=== PATIENT | male | born 1985 | race Two or more races ===

== ENCOUNTER 2017-10-28 18:54 | Emergency (ER) | payer MEDICAID ==
[2017-10-28 19:04] VITALS: RESP 18; TEMP 98.6
--- NOTE | 2017-10-28 19:39 | EDPHY ---
H & P Time Seen by Provider: 10/28/17 19:24 HPI/ROS: Chief complaint. Anxiety, shortness of breath HPI. 32-year-old male presents emergency department with symptoms of anxiety and slight shortness of breath and increased emotional numbness. He received a cortisone shot in a scar in his left shoulder today. It was for keloid treatment. Immediately afterwards he felt some anxiety. He has felt some tension in his chest. He feels he has on balance breathing but not really short of breath. He feels somewhat irritable and emotionally labile. Has some soreness in his left shoulder that goes down to his hand. He has never had a previous cortisone shot. No throat swelling ROS Constitutional. no fever/chills, no weakness Eyes. no problems with vision ENT. no sore throat, no nasal drainage Cardiovascular. no chest pain Respiratory. Slight shortness of breath Abdominal. no abdominal pain, no nausea/vomiting, no diarrhea . no problems urinating MS. Left arm pain Skin. no rash Lymph. no swollen glands Neuro. Irritable and emotionally labile Past Medical/Surgical History: Left shoulder reconstruction, anxiety and depression Social History: Single, nonsmoker, no alcohol Smoking Status: Former smoker Physical Exam: General Appearance: Alert well-developed male somewhat anxious vital signs are stable Eyes: Pupils equal and round no pallor or injection. ENT, Mouth: Mucous membranes are moist. Respiratory: There are no retractions, lungs are clear to auscultation. Cardiovascular: Regular rate and rhythm. Gastrointestinal: Abdomen is soft and nontender, no masses, bowel sounds normal. Neurological: Awake and alert, sensory and motor exams grossly normal. Skin: Keloid scar on the left shoulder. No obvious swelling or erythema to this Musculoskeletal: Neck is supple nontender. Extremities symmetrical, full range of motion. Psychiatric: Patient is oriented X 3, there is no agitation. Constitutional: Initial Vital Signs Temperature (C) 37 C 10/28/17 19:00 Heart Rate 66 10/28/17 19:00 Respiratory Rate 18 10/28/17 19:00 Blood Pressure 131/89 H 10/28/17 19:00 O2 Sat (%) 99 10/28/17 19:00 O2 Delivery Mode Room Air Allergies/Adverse Reactions: No Known Allergies Allergy (Unverified 10/28/17 19:00) Home Medications: Medication Instructions Recorded Albuterol 10/28/17 LORazepam [Ativan] 1 mg PO Q6-8PRN PRN #7 tab 10/28/17 Medical Decision Making Procedures: Ativan and Benadryl ED Course/Re-evaluation: Patient remained stable. The patient and I discussed treatment plan including criteria for return importance of follow-up and further evaluation. He expresses understanding and agreement Differential Diagnosis: Apparent reaction to cortisone or other medications in the shot. Anxiety and emotional lability but without any cardiopulmonary findings or evidence for infection Departure - Departure Disposition: Home, Routine, Self-Care Clinical Impression: Medication reaction Qualifiers: Encounter type: initial encounter Qualified Code(s): T88.7XXA - Unspecified adverse effect of drug or medicament, initial encounter Condition: Good Instructions: Antihistamine (By mouth) Additional Instructions: Ativan as needed for anxiety. Benadryl to help block any allergic reaction. Return for worsening breathing or fever. Recheck in 1-2 days for continuing symptoms Referrals: Luanne Polanco DO [Primary Care Provider] - 1 day, if not improved Prescriptions: LORazepam [Ativan] 1 mg PO Q6-8PRN PRN #7 tab PRN Reason: Anxiety
[2017-10-28] MEDS ORDERED: diphenhydrAMINE 25 MG CAP PO ONE (20:08)
[2017-10-28] MEDS ORDERED: LORAZEPAM 1 MG PREPACK#4 BTL TAKEHOME ONE (20:08)
[2017-10-28 20:36] VITALS: BP 96/68; PULSE 88; O2SAT 96
== END 2017-10-28 20:35 | disposition home or self-care (01) ==
DX: F41.9 Anxiety disorder, unspecified (principal); T38.0X5A Adverse effect of glucocorticoids and synthetic analogues, initial encounter; Z87.891 Personal history of nicotine dependence

== ENCOUNTER 2018-01-21 20:20 | Emergency (ER) | payer OTHER, MEDICAID ==
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
[2018-01-21] MEDS ORDERED: CYCLOBENZAPRINE 10MG PREPACK#3 BTL TAKEHOME ONE (21:58)
[2018-01-21 22:30] VITALS: BP 142/80
== END 2018-01-21 22:29 | disposition home or self-care (01) ==
DX: S33.5XXA Sprain of ligaments of lumbar spine, initial encounter (principal); S23.9XXA Sprain of unspecified parts of thorax, initial encounter; J45.909 Unspecified asthma, uncomplicated; Z87.891 Personal history of nicotine dependence; V43.52XA Car driver injured in collision with other type car in traffic accident, initial encounter; Y92.410 Unspecified street and highway as the place of occurrence of the external cause; Y99.8 Other external cause status; Y93.89 Activity, other specified

== ENCOUNTER 2018-06-22 13:22 | Emergency (ER) | payer MEDICAID, OTHER ==
--- NOTE | 2018-06-22 14:17 | EDPHY ---
H & P Smoking Status: Current every day smoker <Sanya Benjamin - Last Filed: 06/22/18 15:08> <Ryan Kuhn - Last Filed: 06/22/18 18:21> Time Seen by Provider: 06/22/18 14:00 HPI/ROS: Chief complaint. Scrotal pain HPI. Patient is a 32-year-old male with left testicular pain that began after intercourse last night. He felt his left testicle felt pulled up. He thought he felt a possible mass. He was concerned about hernia. Normal urination. No penile discharge. Stable sex partner. No similar symptoms previously. No abdominal pain. No fever ROS Constitutional. no fever/chills, no weakness Eyes. no problems with vision ENT. no sore throat, no nasal drainage Cardiovascular. no chest pain Respiratory. no shortness of breath, no cough Abdominal. no abdominal pain, no nausea/vomiting, no diarrhea. Left testicular pain . no problems urinating MS. no calf pain/swelling, no neck/back pain, no joint pain Skin. no rash Lymph. no swollen glands Neuro. no headache, no dizziness, no difficulty walking or with speech (Sanya Benjamin) Past Medical/Surgical History: Anxiety, depression, asthma (Sanya Benjamin) Social History: Single, daily smoker, no alcohol (Sanya Benjamin) Physical Exam: General Appearance: Alert well-developed male mild distress vital signs stable Eyes: Pupils equal and round no pallor or injection. ENT, Mouth: Mucous membranes are moist. Respiratory: There are no retractions, lungs are clear to auscultation. Cardiovascular: Regular rate and rhythm. Gastrointestinal: Abdomen is soft and nontender, no masses, bowel sounds normal. Tenderness along the epididymis of the left testicle. Normal orientation. I stood the patient up to examine him for hernias. No evidence of hernia Neurological: Awake and alert, sensory and motor exams grossly normal. Skin: Warm and dry, no rashes. Musculoskeletal: Neck is supple nontender. Extremities symmetrical, full range of motion. Psychiatric: Patient is oriented X 3, there is no agitation. (Sanya Benjamin) Constitutional: Initial Vital Signs Temperature (C) 36.8 C 06/22/18 13:35 Heart Rate 68 06/22/18 13:35 Respiratory Rate 16 09/09/18 13:35 Blood Pressure 116/90 H 06/22/18 13:35 O2 Sat (%) 97 06/22/18 13:35 O2 Delivery Mode Room Air Allergies/Adverse Reactions: cortisone Allergy (Intermediate, Verified 06/22/18 13:42) hypermanic steroid reaction Home Medications: Medication Instructions Recorded Diazepam [Valium 5 MG (*)] 5 mg PO 06/22/18 Hydrocodone/APAP 5/325 [Parrott 1 - 2 tab PO Q4H PRN #10 tab 06/22/18 5/325 (RX)] Medical Decision Making <Sanya Benjamin - Last Filed: 06/22/18 15:08> - Diagnostics Imaging: Discussed imaging studies w/ manager call Radiologist <Ryan Kuhn - Last Filed: 06/22/18 18:21> - Diagnostics Imaging Results: Imaging Impressions Testicular Ultrasound 06/22/18 14:23 Impression: Normal ultrasound testes. Findings and recommendations discussed with emergency department physician, Sanya Benjamin MD at 1506 hours on June 22, 2018. Final report concurs with initial preliminary interpretation. Ultrasound reviewed by me and discussed with radiologist is normal (Sanya Benjamin) ED Course/Re-evaluation: We discussed the ultrasound results. The patient states that he was primarily concerned about a hernia. He states that he feels is a test and poked got into his scrotum and is able to push it back in. Currently he is not having the symptoms. On exam he does seem to have a very slight hernia that is easily reducible. We discussed elective repair with surgery. He denies dysuria. We will culture his urine and call him with the results. He is happy with this and declines further workup or testing at this time. (Ryan Kuhn) Differential Diagnosis: Clinically the patient has epididymitis. I also considered hernia a urinary tract infection and sexually transmitted disease (Sanya Benjamin) Care Turn Over: care to Dr. Kuhn at 3 pm (Sanya Benjmain) - Data Points Laboratory Results: 06/22/18 06/22/18 15:30 15:30 Urine Color YELLOW Urine Appearance CLEAR Urine pH 6.0 (5.0-7.5) Ur Specific [place] 1.009 (1.002-1.030) Urine Protein NEGATIVE (NEGATIVE) Urine Ketones NEGATIVE (NEGATIVE) Urine Blood NEGATIVE (NEGATIVE) Urine Nitrate NEGATIVE (NEGATIVE) Urine Bilirubin NEGATIVE (NEGATIVE) Urine Urobilinogen NEGATIVE EU EU (0.2-1.0) Ur Leukocyte Esterase NEGATIVE (NEGATIVE) Urine RBC 1-3 /hpf /hpf (0-3) Urine WBC 1-3 /hpf /hpf (0-3) Ur Epithelial Cells NONE SEEN /lpf /lpf (NONE-1+) Urine Mucus TRACE /lpf /lpf (NONE-1+) Urine Glucose NEGATIVE (NEGATIVE) C.trachomatis RNA (TMA) Pending N.gonorrhoeae RNA (TMA) Pending Medications Given: Discontinued Medications Hydrocodone Bitart/Acetaminophen (Parrott 5/325mg Prepack#6) 1 btl TAKEHOME EDNOW ONE Stop: 06/22/18 16:46 Last Admin: 06/22/18 16:50 Dose: 1 btl Departure <Sanya Benjamin S - Last Filed: 06/22/18 15:08> <Ryan Kuhn - Last Filed: 06/22/18 18:21> - Departure Disposition: Home, Routine, Self-Care Clinical Impression: Inguinal hernia Qualifiers: Obstruction and gangrene presence: without obstruction or gangrene Laterality: unilateral Recurrence: non-recurrent Qualified Code(s): K40.90 - Unilateral inguinal hernia, without obstruction or gangrene, not specified as recurrent Condition: Fair Instructions: Hydrocodone/Acetaminophen (By mouth), Inguinal Hernia (ED) Referrals: NONE *PRIMARY CARE P,. [Primary Care Provider] - As per Instructions Cheryle Marinelli MD [Medical Doctor] - 2-3 days without fail Kenny Lowe MD [Medical Doctor] - 3-4 days, if not improved Prescriptions: Hydrocodone/APAP 5/325 [Parrott 5/325 (RX)] 1 - 2 tab PO Q4H PRN #10 tab PRN Reason: Pain, Moderate
[2018-06-22 15:55] VITALS: BP 125/79
[2018-06-22] MEDS ORDERED: HYDROCOD/APAP 5/325 PREPACK#6 BTL TAKEHOME ONE (16:45)
--- NOTE | 2018-06-23 11:24 | ASMTCMCOM ---
CM Note CM Note Notes: Received a CM consult order to ensure pt is able to follow-up w/Dr Cheryle Marinelli or Dr Kenny Lowe for his inguinal hernia. Attempted to call pt but there was no answer and his voicemail box message was anonymous so no voicemail was left. This CM called Dr Marinelli's office; pt has not called into make an appt yet but when he does they will be able to see his ED report and referral and schedule him. Spoke w/Dr Lowe's office; pt has not called in yet and made an appt w/him either. Reviewed pt's past visits and saw that he has been referred to Luanne Polanco at [facility] in the past. Spoke w/ Tiffanie Estrella RN [employer] Driver Operator at [facility] ([phone]) and she said pt's last visit w/Dr Polanco was a couple of months ago. Tiffanie says she will reach out to the patient and ensure he gets an appt w/either Dr Marinelli or Dr Lowe. CM available for further assistance if needed. Date Signed: 06/23/2018 11:23 AM Electronically Signed By:Lay Moore RN
[2018-06-23 12:11] LABS: GC AMPLIFICATION GENPROBE NEGATIVE (NEGATIVE)
== END 2018-06-22 17:02 | disposition home or self-care (01) ==
DX: K40.90 Unilateral inguinal hernia, without obstruction or gangrene, not specified as recurrent (principal); N45.1 Epididymitis

== ENCOUNTER 2018-07-22 17:01 | Emergency (ER) | payer MEDICAID ==
--- NOTE | 2018-07-22 18:06 | EDPHY ---
General Time Seen by Provider: 07/22/18 17:52 Narrative: CHIEF COMPLAINT: Pain after surgery HISTORY OF PRESENT ILLNESS: Patient presents by private vehicle with complaints of pain after surgery. He states that he had a bilateral inguinal hernia repair on . This was performed outpatient by Dr. Whaley. He states that he was doing well over the course of Saturday, Saturday. On Saturday he awoke with severe, increasing pain in the lower pelvis and bilateral inguinal canals. He thought this may have been constipation, thus he remained he this with fluid and stool softeners. He continue taking his pain medication in the symptoms improved over the course of the day. He contacted his physician who instructed him to stay the current course. He recommended he present to an urgent care of his pain was not well controlled. He made an appointment for Saturday. On Saturday the symptoms were better at but then came back and he ran out of his Percocet pain medication. Pain improvement at night and has returned throughout the day. He has started taking a leftover prescription of Vicodin from previous procedure which had improved his symptoms until this evening. He states that the pain has increased throughout the day today, but is still significantly less than Saturday. No radiating pain. No urinary complaints. No nausea vomiting. No diarrhea. No bleeding. No fever. No redness around the incisions. No other associated complaints or modifying factors. REVIEW OF SYSTEMS: 10 systems were reviewed and negative with the exception of the elements mentioned in the history of present illness. PCP: Dr. Polanco SPECIALISTS: Dr. Whaley, general surgery PAST MEDICAL HISTORY: Inguinal hernias, anxiety, depression, asthma PAST SURGICAL HISTORY: Left shoulder surgery remotely. Bilateral inguinal hernia repair on July 17 SOCIAL HISTORY: Occasional smoker. Lives here independently. 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 Suprapubic incision is clean, dry and intact. There is mild tenderness in the suprapubic region and inguinal canals. Bowel sounds are present all 4 quadrants. No guarding. No fluid wave. No CVA tenderness. : Circumcised penis with normal appearing scrotum. No edema. No cellulitis or ecchymosis. Skin: Warm and dry, no rash. Surgical incision as above. Clean, dry and intact without dehiscence, cellulitis, abscess, purulence or induration. Extremities: Nontender, no pedal edema Psychiatric: Mood and affect normal DIFFERENTIAL DIAGNOSES: Including but not limited to postoperative pain, postoperative seroma, postoperative abscess, postoperative complication, enteritis, colitis, UTI MDM: 5:55 p.m. Postoperative pain that has significantly improved from a severe episode of pain on Saturday. He has no testicular pain. He has no fever, back pain, urinary complaints. There is no signs of cellulitis, dehiscence or infection of the incision. We did discuss at length the normal course of pain following this procedure, which I do feel is reasonable for him at this time. I also offered CT scan imaging of the pelvis to evaluate for possible abscess or postoperative complication. He is declining at this time. I feel it is reasonable at this time to delay imaging. He is requesting that we refill his medication which I do think is reasonable. I feels likely that his pain is a normal, postoperative course that will improve over the course of the next few days. We discussed continuation of anti-inflammatories and ice. We discussed adhering to his remainder postoperative instructions by Dr. Whaley. We discussed strict ED precautions for any increasing pain, fever, nausea, vomiting , constipation or signs of infection surrounding his incision. He agrees to comply with these and he is discharged home. He is well-appearing with normal vital signs in no acute distress. SUPERVISION: This patient was independently evaluated without direct involvement of or examination by the attending physician. CONSULTATION: None - History Smoking Status: Current every day smoker - Objective Vital Signs: Initial Vital Signs Temperature (C) 98.2 F 07/22/18 17:11 Heart Rate 75 07/22/18 17:11 Respiratory Rate 16 07/22/18 17:11 Blood Pressure 132/90 H 07/22/18 17:11 O2 Sat (%) 98 07/22/18 17:11 O2 Delivery Mode Room Air Allergies/Adverse Reactions: cortisone Allergy (Intermediate, Verified 07/22/18 17:10) hypermanic steroid reaction Home Medications: Medication Instructions Recorded Advil 10/09/18 Tylenol 07/22/18 oxyCODONE HCL/ACETAMINOPHEN 1 each PO Q4-6PRN PRN #12 tablet 07/22/18 [Percocet 5-325 mg Tablet] Departure - Departure Disposition: Home, Routine, Self-Care Clinical Impression: Postoperative abdominal pain Condition: Good Instructions: Oxycodone/Acetaminophen (By mouth), Safe Use of Narcotics (ED), Safe Use of Opioids (ED) Additional Instructions: 1. Pain medication as prescribed as needed the junction with previous medications 2. Aleve [id number], 2 pills by mouth twice daily 3. Follow up with her surgeon as scheduled on Saturday 4. Strict ED precautions for any worsening pain, redness, warmth, fever, drainage from the incisions, decreased appetite, nausea, vomiting, constipation or generalized malaise Referrals: Luanne Polanco DO [Primary Care Provider] - As per Instructions Chase Whaley MD [Medical Doctor] - As per Instructions Prescriptions: oxyCODONE HCL/ACETAMINOPHEN [Percocet 5-325 mg Tablet] 1 each PO Q4-6PRN PRN # 12 tablet PRN Reason: Pain, Breakthrough
[2018-07-22 18:07] VITALS: BP 122/80
== END 2018-07-22 18:15 | disposition home or self-care (01) ==
DX: G89.18 Other acute postprocedural pain (principal); F17.200 Nicotine dependence, unspecified, uncomplicated

== ENCOUNTER 2018-07-24 01:08 | Emergency (ER) | payer MEDICAID ==
[2018-07-24 01:52] LABS: PLATELET COUNT 216 10^3/uL (150-400)
--- NOTE | 2018-07-24 01:54 | EDPHY ---
H & P Stated Complaint: ABD PAIN AFTER BILAT HERNIA REPAIR Time Seen by Provider: 07/24/18 01:16 HPI/ROS: HPI The patient presents with lower abdominal pain which has been present for the last several days though on improved, he is status post laparoscopic bilateral inguinal hernia repair by Dr. Whaley on July 17. He was in the emergency department about 24 hr ago with ongoing pain which was worse with coughing. He had an episode of laughing tonight and the pain became worse and is now severe. The pain is worse with any movement and is aching in nature. He does not have any nausea, vomiting, difficulty urinating. His last bowel movement was about 3 hr ago. He does report increased abdominal distension ever since his operation. REVIEW OF SYSTEMS 10 systems were reviewed and negative with the exception of the elements mentioned in the history of present illness. PMHx: Bilateral inguinal hernia repair as above, history of anxiety Soc Hx: Housed, here by himself PHYSICAL General Appearance: Alert, no distress Eyes: Pupils equal and round no pallor or injection ENT, Mouth: Mucous membranes moist Respiratory: There are no retractions, lungs are clear to auscultation Cardiovascular: Regular rate and rhythm Gastrointestinal: Abdomen is soft and mildly distended, there is mild tenderness in the left inguinal region, surgical wound with no surrounding erythema, warmth, edema, mild ecchymoses of his mid abdomen Neurological: A&O, moves all extremities Skin: Warm and dry, no rashes Musculoskeletal: Neck is supple non tender Extremities: symmetrical, full range of motion Psychiatric: Patient is oriented X 3, there is no agitation Source: Patient Exam Limitations: No limitations - Personal History Current Tetanus/Diphtheria Vaccine: Unsure Current Tetanus Diphtheria and Acellular Pertussis (TDAP): Unsure - Medical/Surgical History Hx Asthma: Yes Hx Chronic Respiratory Disease: No Hx Diabetes: No Hx Cardiac Disease: No Hx Renal Disease: No Hx Cirrhosis: No Hx Alcoholism: No Hx HIV/AIDS: No Hx Splenectomy or Spleen Trauma: No Other PMH: anxiety/depression/l shoulder surgery, asthma, ANDREA inguinal hernia repair - Social History Smoking Status: Current every day smoker Constitutional: Initial Vital Signs Temperature (C) 36.9 C 07/24/18 01:10 Heart Rate 91 07/24/18 01:10 Respiratory Rate 18 07/24/18 01:10 Blood Pressure 140/86 H 07/24/18 01:10 O2 Sat (%) 97 07/24/18 01:10 O2 Delivery Mode Room Air Allergies/Adverse Reactions: cortisone Allergy (Intermediate, Verified 07/24/18 01:13) hypermanic steroid reaction Home Medications: Medication Instructions Recorded Advil 07/22/18 Tylenol 07/22/18 oxyCODONE HCL/ACETAMINOPHEN 1 each PO Q4-6PRN PRN #12 tablet 07/22/18 [Percocet 5-325 mg Tablet] Medical Decision Making Differential Diagnosis: This is a 32-year-old male who is about 1 week postoperative from bilateral inguinal hernia repair who presents with abdominal pain. On exam, vital signs are normal, generally well-appearing, abdominal exam shows mild tenderness. Basic labs were checked and were unremarkable. I consulted with Dr. Collins on- call for Dr. Whaley. He came to the emergency department and evaluated the patient. He does not suspect any postoperative infection, bleeding, or other complication. Plan for discharge home with supportive measures. Patient to follow up with Dr. Whaley as planned. - Data Points Laboratory Results: Laboratory Results 07/24/18 01:45 07/24/18 01:45 07/24/18 07/24/18 01:45 01:45 WBC 9.30 10^3/uL 10^3/uL (3.80-9.50) RBC 4.10 10^6/uL L 10^6/uL (4.40-6.38) Hgb 12.4 g/dL L g/dL (13.7-17.5) Hct 36.1 % L % (40.0-51.0) MCV 88.0 fL fL (81.5-99.8) MCH 30.2 pg pg (27.9-34.1) MCHC 34.3 g/dL g/dL (32.4-36.7) RDW 11.9 % % (11.5-15.2) Plt Count 216 10^3/uL 10^3/uL (150-400) MPV 10.0 fL fL (8.7-11.7) Neut % (Auto) 54.2 % % (39.3-74.2) Lymph % (Auto) 31.6 % % (15.0-45.0) [place] % (Auto) 9.9 % % (4.5-13.0) Eos % (Auto) 3.8 % % (0.6-7.6) Baso % (Auto) 0.3 % % (0.3-1.7) Nucleat RBC Rel Count 0.0 % % (0.0-0.2) Absolute Neuts (auto) 5.04 10^3/uL 10^3/uL (1.70-6.50) Absolute Lymphs (auto) 2.94 10^3/uL 10^3/uL (1.00-3.00) Absolute Monos (auto) 0.92 10^3/uL H 10^3/uL (0.30-0.80) Absolute Eos (auto) 0.35 10^3/uL 10^3/uL (0.03-0.40) Absolute Basos (auto) 0.03 10^3/uL 10^3/uL (0.02-0.10) Absolute Nucleated RBC 0.00 10^3/uL 10^3/uL (0-0.01) Immature Gran % 0.2 % % (0.0-1.1) Immature Gran # 0.02 10^3/uL 10^3/uL (0.00-0.10) Sodium 139 mEq/L mEq/L (135-145) Potassium 4.1 mEq/L mEq/L (3.3-5.0) Chloride 100 mEq/L mEq/L (97-110) Carbon Dioxide 31 mEq/l mEq/l (22-31) Anion Gap 8 mEq/L mEq/L (8-16) BUN 12 mg/dL mg/dL (7-23) Creatinine 0.7 mg/dL mg/dL (0.7-1.3) Estimated GFR > 60 Glucose 98 mg/dL mg/dL (70-100) Calcium 9.4 mg/dL mg/dL (8.5-10.4) Departure - Departure Disposition: Home, Routine, Self-Care Clinical Impression: H/O inguinal hernia repair Abdominal pain Qualifiers: Abdominal location: generalized Qualified Code(s): R10.84 - Generalized abdominal pain Condition: Good Instructions: Anxiolysis in Adults (ED) Additional Instructions: Please return to the emergency department if your worse in any way. Please follow-up as planned with your general surgeon. Referrals: Luanne Polanco DO [Primary Care Provider] - As per Instructions Chase Whaley MD [Medical Doctor] - As per Instructions
--- NOTE | 2018-07-24 02:27 | PDCONSULT ---
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 Park Margarito is a 32 y/o male s/p bilateral inguinal hernia repair by Dr. Whaley on 07/17. He presents tonight with a sharp pain in his left testicle that moved down his leg and up to his left shoulder. Pain was sudden and has since subsided. He was seen in the ED yesterday by Dr. Kuhn for post op pain. He denies nausea, vomiting, fever, dysuria. He has been mildly constipated and is still taking Percocet. He took 5mg of Valium before coming to the ED tonight. PMH: L shoulder surgery (took Percocet for 6 weeks after that surgery) Hx Depression/Anxiety Meds: Percocet, Valium all: cortisone? 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 anxiety disorder exacerbating #1 Rec: I reassured Margarito that he is healing as expected and that the pains he is experiencing should become less over time He has a post op appointment with Dr. Whaley on Saturday and he will call the office later today if he has additional concerns I encouraged him to wean off his Percocet and continue to use NSAIDS/ acetaminophen He may benefit from cognitive behavioral for his anxiety S MD Karina, FACS
[2018-07-24 02:31] VITALS: BP 134/76
== END 2018-07-24 02:32 | disposition home or self-care (01) ==
DX: G89.18 Other acute postprocedural pain (principal); F41.9 Anxiety disorder, unspecified

== ENCOUNTER 2018-11-25 18:56 | Emergency (ER) | payer MEDICAID ==
--- NOTE | 2018-11-25 19:38 | EDPHY ---
General Time Seen by Provider: 11/25/18 19:11 Narrative: CLINICAL IMPRESSION: Constipation, left lower quadrant abdominal pain ASSESSMENT/PLAN: 33-year-old male presents to the emergency department with mild left lower quadrant abdominal pain approximately 1 hr after giving himself an informal enema with water and a syringe. Initially vital signs show tachycardia and hypertension, improved after a period of observation. Abdomen is soft with no focal peritoneal findings. Patient had bilateral inguinal hernia repair in July of 2018. There are no clinical concerns for acute herniation or evidence of incarceration or strangulation. No testicular swelling, scrotal swelling, or clinical sign of testicular torsion, epididymitis, or testicular mass. Abdominal x-rays show significant stool burden with no overlying small- bowel obstruction or evidence of perforated viscus. Urine is reassuring with no hematuria or UTI and patient does not present with symptoms suggestive of renal colic or obstructive ureterolithiasis. Images reviewed with Dr. Allen. Patient was given [id number] recommendations for constipation, avoid putting anything perirectally, follow up with primary care, warning signs return to emergency department sooner alignment discharge. DIFFERENTIAL DX: Abdominal pain includes but not limited to acute appendicitis, diverticulitis, cholecystitis, pancreatitis, inguinal hernia, SBO, gastroenteritis, constipation ED PROCEDURES: See lab and/or imaging results below ED COURSE: 7:30 p.m.. Patient seen and assessed by myself. Abdomen non peritoneal, no acute distress, vital signs stable, declining IV analgesics. No clinical signs of incarcerated or strangulated inguinal hernia, testicular torsion, or testicular mass. CHIEF COMPLAINT: Left lower quadrant abdominal pain HPI: 33-year-old otherwise healthy male presents to the emergency department with left lower quadrant abdominal pain. Patient reports he had not had a bowel movement since yesterday morning and upon the recommendation of his roommate, gave himself an enema. However patient reports this was not a "formal enema" rather he used a syringe and some water". Patient reports approximately hour after he gave himself the enema 2:00 p.m. He developed left lower quadrant abdominal discomfort. He is currently rating this as 3/10. He did have a bowel movement after the enema and reports he did strain slightly for this. He had bilateral inguinal hernias repaired in July with mesh placement by Dr. Whaley. He reports pain radiates slightly into the left testicle but he denies testicular swelling or mass. He has no associated nausea, vomiting, diarrhea, bloody stools, fever or chills, flank pain or UTI symptoms. He does not believe he has a rectal foreign body. He is concerned that he perforated his rectum. PAST MEDICAL HISTORY: Anxiety and depression See nurse/triage notes for additional history if applicable Pertinent Past Surgical History: Bilateral inguinal hernia repair July 2018 Family History: Noncontributory Social History: Otherwise healthy REVIEW OF SYSTEMS: All other systems negative Constitutional: No fever, no chills, appetite change. Cardiovascular: No chest pain, no palpitations. Respiratory: No cough, no shortness of breath. Gastrointestinal: Left lower quadrant abdominal pain, no vomiting, diarrhea. Genitourinary: No hematuria, dysuria, flank pain, pelvic pain, left testicular discomfort Musculoskeletal: No back pain, joint swelling, joint pain, myalgias, no flank pain Skin: No rashes, color change. PHYSICAL EXAM: General Appearance: Alert, oriented, appropriate, cooperative, NAD, well hydrated, non-toxic appearing, tachycardic, appears anxious no hypoxia. Respiratory: There are no retractions, lungs are clear to auscultation. Cardiac: Regular rate and rhythm, no murmurs or gallops. Gastrointestinal: Abdomen is soft, nontender, bowel sounds normal, no masses/ hernia, no rigidity, guarding or focal peritoneal findings. exam: Patient is circumcised, no evidence of testicular torsion, scrotal swelling, incarcerated or strangulated inguinal hernia, epididymitis. Skin: Warm, dry, no rashes, no nodules on palpation. MEDICAL DECISION MAKING: Patient was seen independently. Secondary supervising physician at time of evaluation was Dr. Allen . Diagnosis: Constipation, left lower quadrant abdominal pain. New, requires workup Summary: See Assessment and Plan for summary of ED visit Clinical lab tests: ordered / reviewed. Independent visualization of images, tracing, or specimens: Yes. Decision to obtain medical records or history from someone other than the patient: No Review / Summarize previous medical records: None available Discussed patient with another provider: Dr. Allen Patient Progress: Improved. - Diagnostics Imaging Results: Imaging Impressions Abdomen X-Ray 11/25/18 19:34 Impression: Large amount retained fecal material in the cecum/ascending colon compatible with constipation. No evidence of bowel obstruction. - History Smoking Status: Current every day smoker - Objective Vital Signs: Initial Vital Signs Temperature (C) 36.9 C 11/25/18 18:57 Heart Rate 110 H 11/25/18 18:57 Respiratory Rate 16 11/25/18 18:57 Blood Pressure 154/106 H 11/25/18 18:57 O2 Sat (%) 97 11/25/18 18:57 O2 Delivery Mode Room Air Allergies/Adverse Reactions: cortisone Allergy (Intermediate, Verified 07/24/18 01:13) hypermanic steroid reaction Home Medications: Medication Instructions Recorded Advil 07/22/18 Adderall 10 mg Tablet 11/25/18 Laboratory Results: 11/25/18 19:15 Urine Color PALE YELLOW Urine Appearance CLEAR Urine pH 5.0 (5.0-7.5) Ur Specific [place] 1.001 L (1.002-1.030) Urine Protein NEGATIVE (NEGATIVE) Urine Ketones NEGATIVE (NEGATIVE) Urine Blood NEGATIVE (NEGATIVE) Urine Nitrate NEGATIVE (NEGATIVE) Urine Bilirubin NEGATIVE (NEGATIVE) Urine Urobilinogen NEGATIVE EU EU (0.2-1.0) Ur Leukocyte Esterase NEGATIVE (NEGATIVE) Urine Glucose NEGATIVE (NEGATIVE) Departure - Departure Disposition: Home, Routine, Self-Care Clinical Impression: LLQ abdominal pain Constipation Qualifiers: Constipation type: other constipation type Qualified Code(s): K59.09 - Other constipation Condition: Good Instructions: Constipation (ED) Additional Instructions: DISCHARGE INSTRUCTIONS FROM YOUR DOCTOR Thank you for visiting our emergency department today. You were treated by a physician loan assistant today and your case was reviewed with our ED Attending physician. Please keep in mind that discharge from the emergency department does not mean that there is nothing wrong - it simply means that we have not identified an emergency condition that requires further evaluation or treatment in the hospital. You should always plan to follow up with primary care for re- evaluation of your condition in the next 2-3 days. If you have been referred to a specialist, please call as soon as possible (today or tomorrow) to schedule your follow up appointment at the appropriate time. X-RAYS OF YOUR ABDOMEN TONIGHT SHOWED NO EVIDENCE OF PERFORATED COLON. YOU DO HOWEVER HAVE A SIGNIFICANT STOOL BURDEN. FOR CONSTIPATION, WE RECOMMEND USING MIRALAX [id number] WELL STOOL SOFTENERS LIKE COLACE OR GLYCERIN SUPPOSITORIES. PLEASE INCREASE WATER, FRUITS, VEGETABLES, AND EXERCISE. URINE IS NORMAL WITH NO EVIDENCE OF BLOOD OR SIGN OF INFECTION. PLEASE AVOID STRAINING WITH URINATION THIS CAN INJURE YOUR HERNIATION SITES. THERE ARE NO CLINICAL CONCERNS FOR AN EMERGENT CT SCAN TONIGHT. PLEASE MONITOR SYMPTOMS CLOSELY AT HOME. FOLLOW UP WITH A PRIMARY CARE DOCTOR, IF YOU DO NOT HAVE 1 A REFERRAL WAS GIVEN. RETURN TO THE EMERGENCY DEPARTMENT FOR WORSENING OR SEVERE ABDOMINAL PAIN, ABDOMINAL DISTENTION, FEVER GREATER THAN 100.4, VOMITING, INABILITY TO PASS STOOL OR GAS FROM YOUR RECTUM, BLEEDING FROM THE RECTUM, OR ANY OTHER CONCERNS. People present with illnesses and injuries in different ways, and it is always possible that we have missed something. You may always return for re-evaluation if symptoms worsen or if they are not improving or if you develop new/different symptoms. Again, thank you for choosing our emergency department. We hope that you feel better. Referrals: Luanne Polanco, [Primary Care Provider] - 1-2 days without fail
[2018-11-25 20:45] VITALS: BP 130/89
== END 2018-11-25 20:45 | disposition home or self-care (01) ==
DX: K59.09 Other constipation (principal); F17.200 Nicotine dependence, unspecified, uncomplicated

== ENCOUNTER 2018-12-19 11:05 | Emergency (ER) | payer MEDICAID ==
[2018-12-19 11:20] VITALS: BP 117/64
--- NOTE | 2018-12-19 11:30 | EDPHY ---
H & P Stated Complaint: hit tree snowboarding l ant/lateral rib pain/l leg l hip Time Seen by Provider: 12/19/18 11:29 - Personal History Current Tetanus Diphtheria and Acellular Pertussis (TDAP): Unsure - Medical/Surgical History Hx Asthma: Yes Hx Chronic Respiratory Disease: No Hx Diabetes: No Hx Cardiac Disease: No Hx Renal Disease: No Hx Cirrhosis: No Hx Alcoholism: No Hx HIV/AIDS: No Hx Splenectomy or Spleen Trauma: No Other PMH: anxiety/depression/l shoulder surgery, asthma, ANDREA inguinal hernia repair - Social History Smoking Status: Current some day smoker Constitutional: Initial Vital Signs Temperature (C) 36.7 C 12/19/18 11:15 Heart Rate 70 12/19/18 11:15 Respiratory Rate 17 12/19/18 11:15 Blood Pressure 117/64 12/19/18 11:15 O2 Sat (%) 95 12/19/18 11:15 O2 Delivery Mode Room Air Allergies/Adverse Reactions: cortisone Allergy (Intermediate, Verified 12/19/18 11:14) hypermanic steroid reaction Home Medications: Medication Instructions Recorded Adderall 10 mg Tablet 11/25/18 Hydrocodone/APAP 5/325 [Bouse 1 - 2 each PO Q4-6PRN PRN #20 tab 12/19/18 5/325] Ibuprofen [Motrin] 800 mg PO Q8 #20 tab 12/19/18 Medical Decision Making - Diagnostics Imaging: I viewed and interpreted images myself ED Course/Re-evaluation: CHIEF COMPLAINT: Snowboard accident; left rib injury HISTORY OF PRESENT ILLNESS: The patient is a 33 y/o male complaining of left rib, hip, and leg pain secondary to a snowboarding accident today. The patient was snowboarding in the trees when he hit a tree. He denies hitting his head or loss of consciousness. He was able to snowboard down and drive to the emergency department. However, he is still having left rib pain, as well as left hip and leg pain. He is not having difficulty walking. Due to the rib pain he decided to present to the emergency department. No fever, headache, body aches, lightheadedness, chest pain, heart palpitations, shortness of breath, cough, abdominal pain, urinary or bowel complaints, numbness, paresthesias. REVIEW OF SYSTEMS: A 10 point review of systems was performed and is negative with the exception of the elements mentioned in the history of present illness. PHYSICAL EXAM: HR, BP, O2 Sat, RR. Temp noted General Appearance: Alert, well hydrated, appropriate, and non-toxic appearing. Head: Atraumatic without scalp tenderness or obvious injury Eyes: Pupils equal, round, reactive to light and accommodation, EOMI, no trauma , no injection. Ears: Clear bilaterally, no perforation, normal landmarks Nose: Atraumatic, no rhinorrhea, clear. Throat: There is no erythema or exudates, no lesions, normal tonsils, mucus membranes moist. Neck: Supple, 2+ carotid upstroke, nontender, no lymphadenopathy. Respiratory: No retractions, no distress, no wheezes, and no accessory muscle use. Lungs are clear to auscultation bilaterally. Cardiovascular: Regular rate and rhythm, no murmurs, rubs, or gallops. Bilateral carotid, radial, dorsalis pedis, and posterior tibial pulses intact. Good capillary refill all extremities. Chest wall: Left chest wall tenderness to palpation. Gastrointestinal: Abdomen is soft, nontender, non-distended, no masses, no rebound, no guarding, no peritoneal signs. Musculoskeletal: Normal active ROM of all extremities, atraumatic. Neurological: Alert, appropriate, and interactive. The patient has normal DTRs and non-focal cranial nerves, motor, sensory, and cerebellar exam. Skin: No rashes, good turgor, no nodules on palpation. Past medical history: Anxiety, depression, asthma, Past surgical history: Left shoulder surgery, bilateral inguinal hernia repair Family history: Denies Social history: Lives in [place], single, not employed DIAGNOSTICS/PROCEDURES/CRITICAL CARE TIME: Rib x-ray: Buckle fracture of left rib 8. No signs of pneumothorax. DIFFERENTIAL DIAGNOSIS: The differential diagnosis for the patient's trauma included but was not limited to intracranial injury, long bone and pelvic bone fractures, spinal injury, intra-abdominal injury, and intra-thoracic injury. MEDICAL DECISION MAKING: The patient is a 33 y/o male presenting with left rib, hip, and leg pain secondary to a snowboarding accident today. On exam he has left chest wall tenderness to palpation. He does not have difficulty ambulating with his left leg pain. Left rib x-ray ordered. 1145: I reviewed patient's left rib x-ray which reveals a buckle fracture of rib 8. 1155: Reassessed patient and discussed imaging findings. I have advised him to use an incentive spirometer. I have also prescribed him Motrin and Bouse for pain. Return precautions provided; patient is comfortable with this plan. Departure - Departure Disposition: Home, Routine, Self-Care Clinical Impression: Left rib fracture Qualifiers: Encounter type: initial encounter Rib fracture type: single rib Fracture type: closed Qualified Code(s): S22.32XA - Fracture of one rib, left side, initial encounter for closed fracture Condition: Good Instructions: How to Use an Incentive Spirometer (ED), Rib Fracture (ED) Additional Instructions: 1. Take ibuprofen and Bouse as prescribed. 2. Followup with your primary doctor within 72 hours for reevaluation. 3. Use incentive spirometer as directed several times daily. 4. Return to the emergency department for fever, worsening pain, shortness of breath or difficulty breathing, abdominal pain, blood in urine or other concerns. Referrals: Luanne Polanco DO [Primary Care Provider] - As per Instructions Prescriptions: Hydrocodone/APAP 5/325 [Bouse 5/325] 1 - 2 each PO Q4-6PRN PRN #20 tab PRN Reason: Pain, Moderate Ibuprofen [Motrin] 800 mg PO Q8 #20 tab Report Scribed for: Cesar Steinberg Report Scribed by: Yulissa Sanford Date of Report: 12/19/18 Time of Report: 11:41
== END 2018-12-19 12:05 | disposition home or self-care (01) ==
DX: S22.32XA Fracture of one rib, left side, initial encounter for closed fracture (principal); V00.312A Snowboarder colliding with stationary object, initial encounter; Y93.23 Activity, snow (alpine) (downhill) skiing, snowboarding, sledding, tobogganing and snow tubing; Y92.838 Other recreation area as the place of occurrence of the external cause